=== PATIENT | female | born 1985 | race African-American/Black ===

== ENCOUNTER 2018-03-24 19:48 | Emergency (ER) | payer OTHER, MEDICAID ==
[~2018-03-24] VITALS: Ht 162.6 cm; Wt 103.9 kg
[2018-03-24] MEDS ORDERED: NOVOLOG100 UNIT/1 (19:59)
[2018-03-24] MEDS ORDERED: HUMULIN N100 UNIT/1 (19:59)
[2018-03-24] MEDS ORDERED: GLUCOPHAGE1000 MG (20:00)
[2018-03-24] MEDS ORDERED: MOBIC7.5 MG (20:00)
[2018-03-24 21:33] VITALS: BP 160/96
== END 2018-03-24 21:35 | disposition home or self-care (01) ==
LOC: M.ERS 19:48
DX: S92.511A Displaced fracture of proximal phalanx of right lesser toe(s), initial encounter for closed fracture (principal); E11.9 Type 2 diabetes mellitus without complications; F17.210 Nicotine dependence, cigarettes, uncomplicated; W23.0XXA Caught, crushed, jammed, or pinched between moving objects, initial encounter; Y93.89 Activity, other specified; Y92.89 Other specified places as the place of occurrence of the external cause; Y99.8 Other external cause status